=== PATIENT | male | born 1980 | race Hispanic/Latino ===

== ENCOUNTER 2021-11-24 19:41 | Emergency (ER) | payer OTHER, SELFPAY ==
[2021-11-24] MEDS ORDERED: Cyclobenzaprine 10 MG TAB ONE (20:52)
[2021-11-24] MEDS ORDERED: Ibuprofen 800 MG TAB ONE (20:52)
== END 2021-11-24 22:06 | disposition home or self-care (01) ==
LOC: ERS 19:41
DX: M54.50 Low back pain, unspecified (principal); V48.0XXA Car driver injured in noncollision transport accident in nontraffic accident, initial encounter
CPT/HCPCS: 72128; 72131